=== PATIENT | male | born 1955 | race Hispanic/Latino ===

== ENCOUNTER 2020-04-25 05:52 | Day surgery (SDC) | payer MEDICARE ==
[2020-04-21 11:00] VITALS: BP 122/73
[2020-04-21 12:20] LABS: APPEARANCE,URINE CLEAR (CLEAR); BILIRUBIN,URINE NEGATIVE (NEGATIVE); COLOR,URINE YELLOW (YELLOW); GLUCOSE, URINE (UA) NEGATIVE (NEGATIVE); KETONES,URINE NEGATIVE (NEGATIVE); LEUKOCYTE ESTERASE ,URINE NEGATIVE (NEGATIVE); NITRATE,URINE NEGATIVE (NEGATIVE); OCCULT BLOOD,URINE NEGATIVE (NEGATIVE); PH,URINE 5.5 (5.0-8.0); PROTEIN,URINE NEGATIVE (NEGATIVE); UROBILINOGEN,URINE 0.2 mg/dL (0.2-1.0)
[2020-04-21 12:20] LABS: BASOPHILS % (AUTO) 1.2 % (0.0-5.0); EOSINOPHILS % (AUTO) 3.7 % (0.0-8.0); HEMATOCRIT 39.4 % (42-54); LYMPHOCYTES % (AUTO) 25.8 % (21.0-51.0); MEAN CORPUSCULAR HEMOGLOBIN 32.9 pg (27.0-33.0); MONOCYTES % (AUTO) 9.2 % (3.0-13.0); NEUTROPHILS % (AUTO) 59.7 % (40.0-77.0); PLATELET COUNT (AUTO) 314 K/uL (130-400); RED BLOOD CELL COUNT(AUTO) 4.19 MIL/uL (4.50-6.20); RED CELL DISTRIBUTION WIDTH 12.5 % (11.0-15.5); WHITE BLOOD COUNT (AUTO) 4.9 K/uL (4.8-10.8)
[2020-04-21 12:24] LABS: CREATININE 0.9 mg/dL (0.5-1.5); POTASSIUM 4.6 mmol/L (3.5-5.1)
[2020-04-21 12:26] LABS: INR 1.03 (0.85-1.15); PROTHROMBIN TIME 11.2 SEC (9.6-11.6)
[2020-04-21 12:27] LABS: PARTIAL THROMBOPLASTIN TIME 27.8 SEC (26.3-35.5)
[~2020-04-25] VITALS: Ht 177.8 cm; Wt 83.6 kg
[2020-04-25] VITALS (10 sets, daily range): BP systolic 102–131; BP diastolic 66–79
[~2020-04-25 05:52] MED LIST: AEC81 PO; AMLO-258 PO; DOCU250C21 PO; METH2.5T6 PO; METH4TAB16 PO; METO25TA6 PO; ROSU20TA23 PO; SODIUM CHLORIDE 0.9% 500ML 500 ML IV SCH
[2020-04-25] MEDS ORDERED: SODIUM CHLORIDE 0.9% 1000ML 1,000 ML IV ONE (06:19)
[2020-04-25] MEDS ORDERED: folic acid PO (07:12)
[2020-04-25] MEDS ORDERED: FISH1CAP27 PO (07:12)
[2020-04-25] MEDS ORDERED: MULT-1258 PO (07:12)
[2020-04-25] MEDS ORDERED: SODIUM BICARB 50MEQ 50ML VIAL 50 ML ONE (07:33)
[2020-04-25] MEDS ORDERED: HEPARIN SODIUM 1000UNIT/ML 10ML VIAL ONE (07:33)
[2020-04-25] MEDS ORDERED: MIDAZOLAM HCL 1 MG/ML 2ML VIAL ONE ×2 (07:34→08:06)
[2020-04-25] MEDS ORDERED: IOHEXOL-350 75 ML VIAL IV ONE (07:34)
[2020-04-25] MEDS ORDERED: IOHEXOL-350 50ML VIAL IV ONE (07:34)
[2020-04-25] MEDS ORDERED: MEPERIDINE-PF 25 MG/ML SYG ONE ×2 (07:34→08:06)
[2020-04-25] MEDS ORDERED: NITROGLYCERIN 2 MG/VIAL VIAL IV ONE (07:34)
[2020-04-25] MEDS ORDERED: NICARDIPINE HCL 25 MG/10 ML ML IV ONE (07:34)
[2020-04-25] MEDS ORDERED: LIDOCAINE HCL 2% 20ML ONE (07:35)
[2020-04-25] MEDS ORDERED: DiphenhydrAMINE HCL 50 MG/ML VIAL ONE (08:08)
[2020-04-25] MEDS ORDERED: ACETAMINOPHEN-CODEINE 300/30MG TAB PO PRN (09:00)
[2020-04-25] MEDS ORDERED: SODIUM CHLORIDE 0.9% 1000ML 1,000 ML IV SCH (09:00)
== END 2020-04-25 13:00 | disposition home or self-care (01) ==
LOC: DAH 05:52
PROVIDERS: ATTEND Internal Medicine Cardiovascular Disease
DX: I25.119 Atherosclerotic heart disease of native coronary artery with unspecified angina pectoris (principal); I77.1 Stricture of artery; I10 Essential (primary) hypertension; M06.9 Rheumatoid arthritis, unspecified; I49.1 Atrial premature depolarization; Z79.01 Long term (current) use of anticoagulants; Z79.82 Long term (current) use of aspirin; Z98.890 Other specified postprocedural states; Z79.899 Other long term (current) drug therapy; Z95.5 Presence of coronary angioplasty implant and graft
CPT/HCPCS: 36415; 71045; 80048; 81003; 85025; 85610; 85730; 93005; 93454; A4215; A4216; A4221; A4222; A4223 ×3; A4606; A4663; C1769 ×2; C1894; J1200; J1644; J2175 ×2; J2250 ×2; J3490 ×4; J7030; Q9967 ×2; 99156; 99157

== ENCOUNTER → 2020-08-01 | Outpatient (CLI) | payer MEDICARE ==
[~2020-08-01] MED LIST changes: +FISH1CAP27 PO; +MULT-1258 PO; -SODIUM CHLORIDE 0.9% 500ML 500 ML IV SCH; +folic acid PO
== END | disposition home or self-care (01) ==
LOC: RAH 13:34
PROVIDERS: ATTEND Internal Medicine
DX: M17.0 Bilateral primary osteoarthritis of knee (principal); M19.071 Primary osteoarthritis, right ankle and foot; M19.072 Primary osteoarthritis, left ankle and foot; M16.0 Bilateral primary osteoarthritis of hip
CPT/HCPCS: 73522; 73562; 73630